=== PATIENT | male | born 1980 | race African-American/Black ===

== ENCOUNTER 2020-02-05 15:45 | Emergency (ER) | payer OTHER ==
[~2020-02-05] VITALS: Ht 167.6 cm; Wt 65.0 kg
[~2020-02-05 15:45] MED LIST: ALEN70TA65 PO
[2020-02-05 15:47] VITALS: BP 122/73
[2020-02-05] MEDS ORDERED: ALEN70TA65 PO (15:58)
[2020-02-05] MEDS ORDERED: DIVA125C PO (15:58)
== END 2020-02-05 17:49 | disposition home or self-care (01) ==
LOC: EMS 15:48
DX: R45.1 Restlessness and agitation (principal); F79 Unspecified intellectual disabilities; Z79.899 Other long term (current) drug therapy
CPT/HCPCS: Z7502

== ENCOUNTER 2020-08-03 14:09 | Emergency (ER) | payer OTHER ==
[~2020-08-03] VITALS: Ht 160 cm; Wt 60.0 kg
[~2020-08-03 14:09] MED LIST changes: +DIVA125C PO
[2020-08-03] MEDS ORDERED: ACETAMINOPHEN 325 MG TABLET PO ONE (15:30)
[2020-08-03 18:00] VITALS: BP 109/59
== END 2020-08-03 18:09 | disposition home or self-care (01) ==
LOC: EMS 14:21
DX: R51.9 Headache, unspecified (principal)
CPT/HCPCS: 99282; Z7502; Z7610

== ENCOUNTER 2020-09-06 19:15 | Emergency (ER) | payer OTHER ==
[~2020-09-06] VITALS: Ht 157.5 cm; Wt 45.5 kg
[2020-09-06] MEDS ORDERED: PSEU-220 PO (19:29)
[2020-09-06] MEDS ORDERED: AMIT75 PO (19:29)
[2020-09-06] MEDS ORDERED: GLYC1TAB27 PO (19:29)
[2020-09-06] MEDS ORDERED: ACET-2247 PO (19:29)
[2020-09-06] MEDS ORDERED: RISP1SOL11 PO (19:29)
[2020-09-06] MEDS ORDERED: DOCU-275 PO (19:29)
[2020-09-06] MEDS ORDERED: CALC-1275 PO (19:29)
[2020-09-06 20:42] LABS: BASOPHILS % (AUTO) 0.3 % (0.0-2.0); EOSINOPHILS % (AUTO) 1.6 % (1.0-6.0); HEMATOCRIT 38.5 % (41-53); HEMOGLOBIN 12.4 g/dL (13.5-17.5); LYMPHOCYTES # (AUTO) 2.5 K/uL (1.0-4.8); LYMPHOCYTES % (AUTO) 20.9 % (22.0-44.0); MEAN CORPUSCULAR HEMOGLOBIN 26.2 pg (26.0-34.0); MEAN CORPUSCULAR HGB CONC 32.3 G/dL (31.0-37.0); MEAN CORPUSCULAR VOLUME 81 fL (80-100); MONOCYTES # (AUTO) 1.4 K/uL (0.1-1.0); NEUTROPHILS # (AUTO) 7.7 K/uL (1.8-7.7); NEUTROPHILS % (AUTO) 65.2 % (40.0-70.0); PLATELET COUNT (AUTO) 327 K/uL (150-450); RED BLOOD CELL COUNT(AUTO) 4.75 MIL/uL (4.50-5.90); RED CELL DISTRIBUTION WIDTH 14.9 % (11.5-14.5)
[2020-09-06 20:56] LABS: ANION GAP 5 mmol/L (8-16); CALCIUM, TOTAL 9.3 mg/dL (8.8-10.5); CARBON DIOXIDE 31 mmol/L (22-29); CHLORIDE 100 mmol/L (98-107); CREATININE 0.77 mg/dL (0.60-1.30); GLOMERULAR FILTR. RATE CALC > 60 mL/min (>60); GLUCOSE,RANDOM 118 mg/dL (70-110); POTASSIUM 3.9 mmol/L (3.5-5.1); SODIUM SERUM 136 mmol/L (136-145); UREA NITROGEN, BLOOD 12 mg/dL (7-18)
[2020-09-06 21:02] LABS: ALANINE AMINOTRANSFERASE 29 U/L (12-78); ALBUMIN 3.4 g/dL (3.4-5.0); ALKALINE PHOSPHATASE 58 U/L (46-116); ASPARTATE AMINOTRANSFERASE 25 U/L (15-37); BILIRUBIN,TOTAL 0.2 mg/dL (0.1-1.0); TOTAL PROTEIN, SERUM 7.1 g/dL (6.4-8.2)
[2020-09-06 21:12] LABS: PROTHROMBIN TIME 10.8 SEC (9.4-11.6)
[2020-09-06 22:00] VITALS: BP 112/75
== END 2020-09-06 22:12 | disposition home or self-care (01) ==
LOC: EMS 19:17
DX: K59.00 Constipation, unspecified (principal); R11.10 Vomiting, unspecified; R53.1 Weakness
CPT/HCPCS: 74022; 80053; 85025; 85610; 99284

== ENCOUNTER 2021-01-09 14:04 | Emergency (ER) | payer OTHER ==
[~2021-01-09] VITALS: Ht 157.5 cm; Wt 61.4 kg
[~2021-01-09 14:04] MED LIST changes: +ACET-2247 PO; +AMIT75TA55 PO; +CALC-1275 PO; +DOCU-270 PO; +GLYC1TAB27 PO; +PSEU-220 PO; +RISP1SOL11 PO
[2021-01-09] MEDS ORDERED: ACETAMINOPHEN 500 MG TABLET PO ONE (15:30)
[2021-01-09 16:07] VITALS: BP 126/73
== END 2021-01-09 16:12 | disposition home or self-care (01) ==
LOC: EMS 14:06
DX: S01.81XA Laceration without foreign body of other part of head, initial encounter (principal); S05.41XA Penetrating wound of orbit with or without foreign body, right eye, initial encounter; G80.9 Cerebral palsy, unspecified; W19.XXXA Unspecified fall, initial encounter; Y93.89 Activity, other specified; Y92.89 Other specified places as the place of occurrence of the external cause; Y99.8 Other external cause status
CPT/HCPCS: 12011; 70450; 72125; 99285

== ENCOUNTER 2021-04-03 13:43 | Emergency (ER) | payer OTHER ==
[~2021-04-03] VITALS: Ht 157.5 cm; Wt 51.0 kg
[2021-04-03 13:54] VITALS: BP 123/71
[2021-04-03 14:54] LABS: BASOPHILS % (AUTO) 0.1 % (0.0-2.0); EOSINOPHILS % (AUTO) 0 % (1.0-6.0); HEMATOCRIT 35.3 % (41-53); HEMOGLOBIN 11.1 g/dL (13.5-17.5); LYMPHOCYTES # (AUTO) 0.6 K/uL (1.0-4.8); LYMPHOCYTES % (AUTO) 3.5 % (22.0-44.0); MEAN CORPUSCULAR HGB CONC 31.4 G/dL (31.0-37.0); MEAN CORPUSCULAR VOLUME 70 fL (80-100); MONOCYTES # (AUTO) 4.8 K/uL (0.1-1.0); MONOCYTES % (AUTO) 27.5 % (2.0-9.0); NEUTROPHILS # (AUTO) 11.9 K/uL (1.8-7.7); NEUTROPHILS % (AUTO) 68.9 % (40.0-70.0); PLATELET COUNT (AUTO) 516 K/uL (150-450); RED BLOOD CELL COUNT(AUTO) 5.03 MIL/uL (4.50-5.90); RED CELL DISTRIBUTION WIDTH 17.7 % (11.5-14.5)
[2021-04-03 14:56] LABS: ANION GAP 11 mmol/L (8-16); CALCIUM, TOTAL 10.6 mg/dL (8.8-10.5); CARBON DIOXIDE 25 mmol/L (22-29); CHLORIDE 102 mmol/L (98-107); CREATININE 0.93 mg/dL (0.60-1.30); GLOMERULAR FILTR. RATE CALC > 60 mL/min (>60); GLUCOSE,RANDOM 146 mg/dL (70-110); POTASSIUM 4.2 mmol/L (3.5-5.1); SODIUM SERUM 138 mmol/L (136-145); UREA NITROGEN, BLOOD 17 mg/dL (7-18)
[2021-04-03 15:04] LABS: ALANINE AMINOTRANSFERASE 25 U/L (12-78); ALBUMIN 2.4 g/dL (3.4-5.0); ALKALINE PHOSPHATASE 87 U/L (46-116); ASPARTATE AMINOTRANSFERASE 41 U/L (15-37); BILIRUBIN,TOTAL 0.1 mg/dL (0.1-1.0); TOTAL PROTEIN, SERUM 7.4 g/dL (6.4-8.2)
[2021-04-03] MEDS ORDERED: DIPHENOXYLATE/ATROP 2.5-0.025 MG TABLET PO ONE (15:45)
[2021-04-03] MEDS ORDERED: CALC-1275 PO (15:45)
[2021-04-03] MEDS ORDERED: ONDANSETRON HCL 4 MG TABLET PO ONE (15:45)
[2021-04-03] MEDS ORDERED: DIVA-111 PO (15:45)
[2021-04-03] MEDS ORDERED: ACETAMINOPHEN 500 MG TABLET PO ONE (15:45)
[2021-04-03 15:50] LABS: COVID AG,FIA SOURCE NASOPHARYNGEAL
[2021-04-03 16:20] LABS: INFLUENZA TYPE A NEGATIVE FOR TYPE A (NEGATIVE); INFLUENZA TYPE B NEGATIVE FOR TYPE B (NEGATIVE)
== END 2021-04-03 16:51 | disposition home or self-care (01) ==
LOC: EMS 13:43
DX: U07.1 COVID-19 (principal); K52.9 Noninfective gastroenteritis and colitis, unspecified; G80.9 Cerebral palsy, unspecified; F89 Unspecified disorder of psychological development; F41.9 Anxiety disorder, unspecified; F32.9 Major depressive disorder, single episode, unspecified; Z79.899 Other long term (current) drug therapy
CPT/HCPCS: 80053; 85025; 87804; 99283

== ENCOUNTER 2021-09-22 14:48 | Emergency (ER) | payer OTHER ==
[~2021-09-22] VITALS: Ht 170.2 cm; Wt 52.3 kg
[~2021-09-22 14:48] MED LIST changes: +DIVA-111 PO; -DIVA125C PO; -DOCU-270 PO; +DOCU-385 PO
[2021-09-22 16:51] LABS: BASOPHILS % (AUTO) 0.4 % (0.0-2.0); EOSINOPHILS % (AUTO) 2.5 % (1.0-6.0); HEMATOCRIT 29.2 % (41-53); HEMOGLOBIN 8.3 g/dL (13.5-17.5); LYMPHOCYTES # (AUTO) 2.7 K/uL (1.0-4.8); LYMPHOCYTES % (AUTO) 31.9 % (22.0-44.0); MEAN CORPUSCULAR HEMOGLOBIN 16.8 pg (26.0-34.0); MEAN CORPUSCULAR HGB CONC 28.5 G/dL (31.0-37.0); MEAN CORPUSCULAR VOLUME 59 fL (80-100); MONOCYTES # (AUTO) 0.8 K/uL (0.1-1.0); MONOCYTES % (AUTO) 9.8 % (2.0-9.0); NEUTROPHILS # (AUTO) 4.7 K/uL (1.8-7.7); NEUTROPHILS % (AUTO) 55.4 % (40.0-70.0); PLATELET COUNT (AUTO) 681 K/uL (150-450); RED BLOOD CELL COUNT(AUTO) 4.95 MIL/uL (4.50-5.90); RED CELL DISTRIBUTION WIDTH 20.9 % (11.5-14.5)
[2021-09-22 17:01] LABS: ANION GAP 7 mmol/L (8-16); CARBON DIOXIDE 30 mmol/L (22-29); CHLORIDE 101 mmol/L (98-107); CREATININE 0.69 mg/dL (0.60-1.30); GLOMERULAR FILTR. RATE CALC > 60 mL/min (>60); GLUCOSE,RANDOM 95 mg/dL (70-110); POTASSIUM 4.1 mmol/L (3.5-5.1); SODIUM SERUM 138 mmol/L (136-145); UREA NITROGEN, BLOOD 13 mg/dL (7-18)
[2021-09-22 17:04] LABS: PROTHROMBIN TIME 11.1 SEC (9.4-11.6)
[2021-09-22 17:07] LABS: ALANINE AMINOTRANSFERASE 20 U/L (12-78); ALBUMIN 3.3 g/dL (3.4-5.0); ALKALINE PHOSPHATASE 65 U/L (46-116); ASPARTATE AMINOTRANSFERASE 15 U/L (15-37); BILIRUBIN,TOTAL 0.2 mg/dL (0.1-1.0); TOTAL PROTEIN, SERUM 7.9 g/dL (6.4-8.2)
[2021-09-22 17:24] LABS: PLATELET MORPHOLOGY COMMENT GIANT PLTS PRESENT
[2021-09-22 17:48] VITALS: BP 135/80
[2021-09-22] MEDS ORDERED: FERR325T27 PO (18:20)
== END 2021-09-22 18:27 | disposition home or self-care (01) ==
LOC: EMS 14:55
DX: D64.9 Anemia, unspecified (principal); G80.9 Cerebral palsy, unspecified; F41.9 Anxiety disorder, unspecified; F32.9 Major depressive disorder, single episode, unspecified; Z79.899 Other long term (current) drug therapy
CPT/HCPCS: 80053; 84484; 85025; 85610; 85730; 86850; 86900; 86901; 93005; 99284